=== PATIENT | female | born 1980 | race Caucasian/White ===

== ENCOUNTER → 2017-01-21 | Outpatient (CLI) | payer MEDICARE, OTHER ==
--- NOTE | 2017-01-22 09:51 | MR ---
EXAMINATION TYPE: MR cervical spine wo/w con DATE OF EXAM: 01/21/2017 9:39 AM COMPARISON: 02/04/2016, 08/24/2011 HISTORY: Neck pain Contrast: 13 mL MultiHance TECHNIQUE: T1 sagittal and coronal, T2 sagittal, and gradient echo axial, postcontrast T1 axial and s agittal views of the cervical spine are submitted. FINDINGS: The cranial cervical junction is preserved. There is no abnormal signal seen within the sp inal cord or paraspinal soft tissues. There is evidence of previous surgery at the C6-C7 level. There is a reversal of the cervical lordosis with kyphosis centered at this level. At C2-3 there is no disc herniation, canal stenosis, or foraminal encroachment. At C3-4 there is no disc herniation or canal stenosis. No foraminal encroachment. Mild facet arthropa thy. At C4-5 there is no disc herniation or canal stenosis. There is mild disc desiccation and central dis c bulging. At C5-6 there is large central and right paracentral disc herniation with anterior compression of the spinal cord. Appears fairly stable from previous exam. Discogenic marrow changes are stable. Neural foramina remain patent. No definite abnormal signal within the spinal cord. Retrolisthesis stable fro m previous. At C6-7 there is postsurgical changes. There is uncovertebral joint hypertrophy bilaterally with righ t paracentral disc bulging. No canal stenosis. There is moderate left-sided foraminal encroachment an d mild right-sided foraminal encroachment. At C7-T1 there is no disc herniation or canal stenosis. No foraminal encroachment. IMPRESSION: 1. Sizable central disc herniation slightly greater paracentrally to the right C5-C6 with anterior c ompression of the spinal cord which appears stable from the previous exam. There is significant canal stenosis. 2. Reversal of the spine lordosis at the C5-6 level. 3. Disc bulging with uncovertebral joint hypertrophy and postsurgical change C6-C7. Mild right-sided foraminal encroachment and moderate left-sided foraminal encroachment. Findings stable. 4. No abnormal signal within the visualized spinal cord. Note is made that there is cord compression at C5-C6 which appears secondary to a disc herniation as noted above. EXAMINATION TYPE: MR thoracic spine wo/w con DATE OF EXAM: 01/21/2017 9:39 AM COMPARISON: 02/04/2016 Contrast: HISTORY: Neck pain Standard multiplanar, multisequence MRI departmental protocol utilizing 13 mL intravenous MultiHance gadolinium contrast. FINDINGS: Alignment is anatomic. Vertebral body height and disc signal is fairly well maintained at all levels. There is no disc herniation or canal stenosis at any of the visualized levels. No foraminal encroach ment. No abnormal signal seen in the visualized spinal cord. No abnormal enhancement following contrast IMPRESSION: No acute process. No abnormal signal in the spinal cord. A Yellow message has been communicated to Shady Cali DO via the [email or web address] Critical Result system on 01/22/2017 9:49 AM, Message ID [id number].
== END ==
LOC: RADMRIMAIN 07:56
PROVIDERS: ATTEND Psychiatry & Neurology Neurology
DX: M50.222 Other cervical disc displacement at C5-C6 level (principal); M50.023 Cervical disc disorder at C6-C7 level with myelopathy; G35 Multiple sclerosis
CPT/HCPCS: 72156; 72157; A9577

== ENCOUNTER → 2017-01-22 | Outpatient (CLI) | payer MEDICARE, OTHER ==
--- NOTE | 2017-01-22 19:16 | MR ---
MRI of the brain with and without contrast HISTORY: MS COMPARISON: Outside MRI dated 02/04/2016 TECHNIQUE: T1-weighted sagittal, T2, FLAIR, T2 FLAIR sagittal and diffusion axial, postcontrast T1 ax ial and coronal views of the brain are submitted. CONTRAST: 15 mL MultiHance FINDINGS: There is no evidence of acute ischemia. The ventricles, basal cisterns, and sulci overlying the co nvexities are consistent with the patient's age. There is no mass effect or enhancing mass. Craniocervical junction is maintained. Sella turcica has a normal appearance. Intraorbital structures have a normal appearance. No evidence of cerebellopontine angle mass. There is a nasal septal deviation changes of mild chronic sinusitis. WHITE MATTER: There remains approximately 25 areas of abnormal signal. The largest measures approximately 1.2 cm. Single callosal lesion is seen. There are multiple lesions perpendicular to the ventricular system. S [place] lesion within the left posterior cerebral peduncle is stable. No enhancing lesions. IMPRESSION: 1. Diffuse white matter findings are compatible with demyelinating process and suggestive of multiple sclerosis. The number, size and morphology of the lesions appear stable from previous exam. No enhan cing lesions.
== END | disposition home or self-care (01) ==
LOC: RADMRIMAIN 08:02
PROVIDERS: ATTEND Psychiatry & Neurology Neurology
DX: R90.82 White matter disease, unspecified (principal)
CPT/HCPCS: 70553; A9577

== ENCOUNTER → 2018-08-13 | Outpatient (CLI) | payer MEDICARE ==
--- NOTE | 2018-08-13 11:12 | MR ---
EXAMINATION TYPE: MR brain wo/w con DATE OF EXAM: 08/13/2018 COMPARISON: Prior MRI brain January 22, 2017 HISTORY: MS TECHNIQUE: Multiplanar, multisequence images of the brain and brainstem is performed without and with IV contras t, utilizing 6 mL intravenous Gadavist gadolinium contrast is administered intravenously. Demyelinat ing disease protocol with additional Sagittal Flair sequence performed. FINDINGS: T2 Lesions Present : Yes Approximate Number of Lesions: Approximate 25 larger lesions redemonstrated Locations Identified : Scattered deep and periventricular. No infratentorial. Involvement Size of Ref erence Lesion(s): 1. 9 x 7 x 6 mm on axial image 19 and sagittal image 22 stable right frontal periventricular lesion Enhancing Lesion(s) Present: No T1 Hypointense Lesion(s) Present: Yes Change from Prior: Stable Diffusion weighted images demonstrate no evidence of a recent infarct or other diffusion abnormality. There is no worrisome extra-axial fluid collection. The ventricular system and cisternal spaces ar e normal in size and appearance. The brain volume is age appropriate. Midline structures demonstrate normal morphology. The craniocervical junction appears within normal limits. Post contrast images demonstrate no abnormal enhancement. The dural venous sinuses appear pa tent. The visualized sinuses are clear and the globes are intact. IMPRESSION: Moderate white matter changes redemonstrated most likely product of known multiple sclero sis. No new or enhancing lesions are identified. Overall stable findings.
== END | disposition home or self-care (01) ==
LOC: RADMRIMAIN 10:01
PROVIDERS: ATTEND Psychiatry & Neurology Neurology
DX: R90.89 Other abnormal findings on diagnostic imaging of central nervous system (principal); G35 Multiple sclerosis
CPT/HCPCS: 70553; A9581